=== PATIENT | male | born 1960 | race Caucasian/White ===

== ENCOUNTER → 2016-08-23 | Outpatient (CLI) | payer BC | END | disposition home or self-care (01) | LOC: CANPRECLI → LABWHC1 10:39 | PROVIDERS: ATTEND Orthopaedic Surgery | DX: Z53.9 Procedure and treatment not carried out, unspecified reason (principal) ==

== ENCOUNTER → 2017-05-04 | Outpatient (CLI) | payer BC ==
--- NOTE | 2017-05-04 17:52 | XR ---
EXAMINATION TYPE: XR lumbar spine with bend/flex DATE OF EXAM: 05/04/2017 COMPARISON: NONE HISTORY: Back pain TECHNIQUE: 7 views FINDINGS: Multiple film exam including flexion and extension views show normal alignment of the verte bra. There is no evidence of instability. There is minor spurring of the endplates. There is no signi ficant disc space narrowing. Posterior elements are intact. Sacroiliac joints appear normal. IMPRESSION: Minimal spurring. Otherwise negative exam. No evidence of instability.
== END | disposition home or self-care (01) ==
LOC: RADXRMAIN 17:10
PROVIDERS: ATTEND Neurological Surgery
DX: M46.06 Spinal enthesopathy, lumbar region (principal)
CPT/HCPCS: 72114

== ENCOUNTER → 2017-09-01 | Outpatient (CLI) | payer BC ==
--- NOTE | 2017-09-01 13:20 | XR ---
Lumbar spine HISTORY: Radiculopathy 3 views of the lumbar spine correlated to prior exam 05/02/2017 Patient is status post lumbosacral fusion L5-S1. There is stable alignment. Multilevel spondylosis is again noted. Vertebral spacing material present at L5-S1. One of the screws at S1 reaches the anteri or cortex. Disc heights are decreased. IMPRESSION: Neurosurgical follow-up, degenerative disc disease, postop changes
--- NOTE | 2017-09-01 16:12 | XR ---
Cervical spine HISTORY: Radiculopathy 4 views of the cervical spine No comparisons Postop change noted to the right clavicle. Multilevel facet arthropathy changes present. Retrolisthes is grade 1 C3-4, C4-5, C5-6. There is multilevel spondylosis. Cervical vertebral bodies show preserve d height and bone mineralization. Prevertebral soft tissues are normal. Multilevel loss of disc heigh t at the intervertebral levels is present. IMPRESSION: Degenerative disc disease and facet arthropathy.
== END | disposition home or self-care (01) ==
LOC: RADXRMAIN 10:49
PROVIDERS: ATTEND Neurological Surgery
DX: M50.10 Cervical disc disorder with radiculopathy, unspecified cervical region (principal); M51.37 Other intervertebral disc degeneration, lumbosacral region; M46.92 Unspecified inflammatory spondylopathy, cervical region; Z98.1 Arthrodesis status
CPT/HCPCS: 72050; 72100

== ENCOUNTER → 2017-12-02 | Outpatient (CLI) | payer BC ==
--- NOTE | 2017-12-04 06:27 | MR ---
EXAMINATION TYPE: MR shoulder LT wo con DATE OF EXAM: 12/02/2017 COMPARISON: NONE HISTORY: Left shoulder pain TECHNIQUE: Multiplanar, multisequence imaging of the left shoulder is performed without contrast. FINDINGS: The AC joint appears normal. Glenohumeral joint is anatomic. Glenoid nidhi appear fairly normal. Ther e is 4 mm cyst at the posterior glenoid labrum. Humeral head is intact. There is a small amount of fl uid on the superior aspect of the supraspinatus tendon. There is no retraction. There is no subacromi al impingement. Biceps tendon is intact. Subscapularis tendon is intact. IMPRESSION: There is a small amount of fluid above the supraspinatus tendon consistent with mild tendinitis. No e vidence of a full-thickness rotator cuff tear.
== END | disposition home or self-care (01) ==
LOC: RADMRIMAIN 11:24
PROVIDERS: ATTEND Orthopaedic Surgery Sports Medicine
DX: M25.512 Pain in left shoulder (principal)

== ENCOUNTER → 2023-02-16 | Outpatient (CLI) | payer MEDICARE ==
--- NOTE | 2023-02-20 10:40 | MR ---
EXAMINATION TYPE: MR shoulder LT wo con DATE OF EXAM: 02/16/2023 COMPARISON: 12/02/2017 HISTORY: Left shoulder pain for 6 weeks due to fall off [employer] TECHNIQUE: Multiplanar, multisequence imaging of the left shoulder is performed without contrast. FINDINGS: There is marked abnormal fluid signal intensity within the AC joint with separation of the AC joint c onsistent with a grade 3 AC joint separation. This was not present on the prior study. There is abnormal fluid signal intensity within the supraspinatus muscle and proximal tendon at the m usculotendinous junction consistent with an intrasubstance tear. There is no retraction of the muscul otendinous junction. The infraspinatus and subscapularis tendons are intact. There is no evidence of a labral injury. The biceps anchor is intact and the long head of the biceps tendon is normal in position within the occipital groove and is of normal signal intensity. There is no abnormality the glenohumeral joint. IMPRESSION: 1. Grade 3 AC joint separation. 2. Intrasubstance tear of the supraspinatus muscle at the musculotendinous junction without retractio n. 3. No abnormality of the glenohumeral joint. 4. No abnormality of the subscapularis or infraspinatus tendons. 5. No definite labral injury.
== END | disposition home or self-care (01) ==
LOC: RADMRIMAIN 15:06
PROVIDERS: ATTEND Orthopaedic Surgery Sports Medicine
DX: S43.122A Dislocation of left acromioclavicular joint, 100%-200% displacement, initial encounter (principal); S43.52XD Sprain of left acromioclavicular joint, subsequent encounter; M75.102 Unspecified rotator cuff tear or rupture of left shoulder, not specified as traumatic; Y99.9 Unspecified external cause status